=== PATIENT | male | born 1935 | race Caucasian/White ===

== ENCOUNTER 2017-06-08 18:44 | Inpatient (IN) | payer MEDICARE ==
[~2017-06-08] VITALS: Ht 175.3 cm; Wt 109.6 kg
[2017-06-08] MEDS ORDERED: FUROSEMIDE20 MG PO (20:06)
[2017-06-08] MEDS ORDERED: CATAPRES0.2 MG PO (20:06)
[2017-06-08] MEDS ORDERED: FLOMAX0.4 MG PO (20:07)
[2017-06-08] MEDS ORDERED: NORVASC5 MG PO (20:07)
[2017-06-08] MEDS ORDERED: PLAVIX75 MG PO (20:07)
[2017-06-08] MEDS ORDERED: LIPITOR80 MG PO (20:08)
[2017-06-08] MEDS ORDERED: [UNRECOGNIZED DRUG - OTHER] PO (20:10)
[2017-06-08 20:49] VITALS: BP 143/59
[2017-06-09 01:26] VITALS: BP 127/54
[2017-06-09 02:29] VITALS: BMI 35.4
[2017-06-09 04:00] VITALS: BP 175/59
[2017-06-09 04:47] LABS: HEMATOCRIT 36.4 % (42.0-54.0); HEMOGLOBIN 12.1 g/dL (13.5-17.5); MCH 29.2 pg (26.0-34.0); MCHC 33.2 g/dL (31.0-37.0); MCV 87.7 fL (80.0-100.0); MEAN PLATELET VOLUME 10.7 fL (7.4-10.4); PLATELET COUNT 194 10x3/uL (130-400); RBC 4.15 10x6/uL (4.20-6.10); RDW 15.1 % (11.5-14.5); WBC 24.5 10x3/uL (4.8-10.8)
[2017-06-09 05:18] LABS: ALBUMIN 3.1 g/dL (3.4-5.0); ANION GAP 14.5 mmol/L (8-16); BILIRUBIN - TOTAL 0.8 mg/dL (0.2-1.3); CALCIUM 9.9 mg/dL (8.5-10.1); CARBON DIOXIDE 23.9 mmol/L (21.0-32.0); CREATININE - SERUM 1.8 mg/dL (0.6-1.3); POTASSIUM - SERUM 4.4 mmol/L (3.5-5.1); PROTEIN - SERUM 6.9 g/dL (6.4-8.2)
[2017-06-09 05:43] LABS: EOSINOPHILS 1 % (0-7); LYMPHOCYTES 4 % (15-50); MONOCYTES 6 % (2-11); NEUTROPHILS 86 % (40-80); PLATELET ESTIMATE NORMAL
[2017-06-09 08:43] LABS: APPEARANCE CLEAR (CLEAR); BACTERIA FEW /hpf (NONE SEEN); BILIRUBIN NEGATIVE (NEGATIVE); COLOR DK YELLOW (YELLOW); EPITHELIAL CELLS OCC /hpf (0-5); GLUCOSE NEGATIVE (NEGATIVE); KETONE NEGATIVE (NEGATIVE); MUCUS <1+ /lpf (NONE SEEN); NITRITE NEGATIVE (NEGATIVE); PROTEIN TRACE mg/dL (NEGATIVE); RED CELLS - URINE OCC /hpf (0-5); SPECIFIC GRAVITY 1.015 (1.005-1.020); UROBILINOGEN NORMAL (NORMAL)
[2017-06-09 09:01] VITALS: BP 180/75
[2017-06-09 12:27] VITALS: BP 174/75
[2017-06-09 13:26] VITALS: Ht 175.3 cm; Wt 109.6 kg
[2017-06-09 16:27] VITALS: BP 148/61
[2017-06-09 22:06] VITALS: BP 167/55
[2017-06-10 05:03] VITALS: BP 147/70
[2017-06-10 06:27] LABS: BASOPHILS 0.1 % (0-2); EOSINOPHILS 0.7 % (0-7); HEMATOCRIT 34.9 % (42.0-54.0); HEMOGLOBIN 11.2 g/dL (13.5-17.5); IMMATURE GRANULOCYTES 0.6 % (0-5); LYMPHOCYTES 11.6 % (15-50); MCH 28.9 pg (26.0-34.0); MCHC 32.1 g/dL (31.0-37.0); MEAN PLATELET VOLUME 10.8 fL (7.4-10.4); MONOCYTES 9.7 % (2-11); NEUTROPHILS 77.3 % (40-80); PLATELET COUNT 192 10x3/uL (130-400); RBC 3.88 10x6/uL (4.20-6.10); RDW 15.4 % (11.5-14.5)
[2017-06-10 06:31] LABS: MCV 89.9 fL (80.0-100.0); WBC 15.2 10x3/uL (4.8-10.8)
[2017-06-10 06:42] LABS: ANION GAP 13.1 mmol/L (8-16); CALCIUM 9.2 mg/dL (8.5-10.1); CARBON DIOXIDE 25.6 mmol/L (21.0-32.0); CREATININE - SERUM 1.8 mg/dL (0.6-1.3); POTASSIUM - SERUM 4.7 mmol/L (3.5-5.1)
[2017-06-10 08:02] VITALS: BP 40/57
[2017-06-10 12:00] VITALS: BP 131/71
[2017-06-10 16:35] VITALS: BP 88/48
[2017-06-10 20:30] VITALS: BP 171/49
[2017-06-11 00:52] VITALS: BP 174/54
[2017-06-11 03:58] VITALS: BP 153/66
[2017-06-11 04:37] LABS: BASOPHILS 0.2 % (0-2); EOSINOPHILS 1.2 % (0-7); HEMATOCRIT 34.6 % (42.0-54.0); HEMOGLOBIN 11.2 g/dL (13.5-17.5); LYMPHOCYTES 12.5 % (15-50); MCH 29.1 pg (26.0-34.0); MCHC 32.4 g/dL (31.0-37.0); MCV 89.9 fL (80.0-100.0); MEAN PLATELET VOLUME 10.6 fL (7.4-10.4); MONOCYTES 11.3 % (2-11); NEUTROPHILS 73.8 % (40-80); PLATELET COUNT 194 10x3/uL (130-400); RBC 3.85 10x6/uL (4.20-6.10); RDW 15.3 % (11.5-14.5)
[2017-06-11 04:40] LABS: WBC 11.2 10x3/uL (4.8-10.8)
[2017-06-11 04:49] LABS: ANION GAP 13.5 mmol/L (8-16); CALCIUM 9.2 mg/dL (8.5-10.1); CARBON DIOXIDE 24.8 mmol/L (21.0-32.0); CREATININE - SERUM 1.6 mg/dL (0.6-1.3); POTASSIUM - SERUM 4.3 mmol/L (3.5-5.1)
[2017-06-11 08:29] VITALS: BP 153/62
[2017-06-11 12:51] VITALS: BP 137/59
[2017-06-11 15:51] VITALS: BP 140/70
[2017-06-11 20:00] VITALS: BP 145/49
[2017-06-12] VITALS: BP 121/55
[2017-06-12 04:00] VITALS: BP 151/61
[2017-06-12 04:50] LABS: BASOPHILS 0.2 % (0-2); EOSINOPHILS 2.8 % (0-7); HEMATOCRIT 33.4 % (42.0-54.0); HEMOGLOBIN 10.9 g/dL (13.5-17.5); IMMATURE GRANULOCYTES 2.3 % (0-5); LYMPHOCYTES 17.5 % (15-50); MCH 29.1 pg (26.0-34.0); MCHC 32.6 g/dL (31.0-37.0); MCV 89.1 fL (80.0-100.0); MEAN PLATELET VOLUME 10.7 fL (7.4-10.4); MONOCYTES 9.6 % (2-11); NEUTROPHILS 67.6 % (40-80); PLATELET COUNT 197 10x3/uL (130-400); RBC 3.75 10x6/uL (4.20-6.10); RDW 15.2 % (11.5-14.5); WBC 8.7 10x3/uL (4.8-10.8)
[2017-06-12 05:17] LABS: ANION GAP 16.1 mmol/L (8-16); CALCIUM 9.5 mg/dL (8.5-10.1); CARBON DIOXIDE 22.1 mmol/L (21.0-32.0); CREATININE - SERUM 1.7 mg/dL (0.6-1.3); POTASSIUM - SERUM 4.2 mmol/L (3.5-5.1)
[2017-06-12 08:09] VITALS: BP 154/54
[2017-06-12 12:07] VITALS: BP 152/62
[2017-06-12 16:01] VITALS: BP 138/51
[2017-06-12 19:49] VITALS: BP 138/52
[2017-06-13] VITALS: BP 179/71
[2017-06-13 04:03] VITALS: BP 137/50
[2017-06-13 05:59] LABS: BASOPHILS 0.3 % (0-2); EOSINOPHILS 3.2 % (0-7); HEMATOCRIT 33.9 % (42.0-54.0); IMMATURE GRANULOCYTES 4.3 % (0-5); LYMPHOCYTES 18.7 % (15-50); MCH 28.6 pg (26.0-34.0); MCHC 32.4 g/dL (31.0-37.0); MCV 88.1 fL (80.0-100.0); MEAN PLATELET VOLUME 11.1 fL (7.4-10.4); MONOCYTES 8.4 % (2-11); NEUTROPHILS 65.1 % (40-80); PLATELET COUNT 228 10x3/uL (130-400); RBC 3.85 10x6/uL (4.20-6.10); WBC 8.9 10x3/uL (4.8-10.8)
[2017-06-13 06:09] LABS: ANION GAP 12.4 mmol/L (8-16); CALCIUM 9.3 mg/dL (8.5-10.1); CARBON DIOXIDE 24.8 mmol/L (21.0-32.0); CREATININE - SERUM 1.5 mg/dL (0.6-1.3); POTASSIUM - SERUM 4.2 mmol/L (3.5-5.1)
[2017-06-13 07:32] VITALS: BP 153/60
[2017-06-13 11:39] VITALS: BP 124/57
[2017-06-13] MEDS ORDERED: LEVAQUIN500 MG PO (14:21)
== END 2017-06-13 16:24 | disposition home health service (06) | DRG 871 ==
LOC: D.MS 18:44
PROVIDERS: Internal Medicine Nephrology
DX: A41.9 Sepsis, unspecified organism (principal); J18.9 Pneumonia, unspecified organism; J96.01 Acute respiratory failure with hypoxia; N17.9 Acute kidney failure, unspecified; N18.9 Chronic kidney disease, unspecified; D64.9 Anemia, unspecified

== ENCOUNTER → 2018-06-30 08:50 | Outpatient (CLI) | payer MEDICARE ==
[2017-06-09 13:26] VITALS: BMI 35.3
[~2018-06-30 08:50] MED LIST: CATAPRES0.2 MG PO; FLOMAX0.4 MG PO; FUROSEMIDE20 MG PO; LEVAQUIN500 MG PO; LIPITOR80 MG PO; NORVASC5 MG PO; PLAVIX75 MG PO; [UNRECOGNIZED DRUG - OTHER] PO
[2018-06-30 09:56] LABS: ALBUMIN 2.9 g/dL (3.4-5.0); BILIRUBIN - DIRECT 0.11 mg/dL (0.00-0.30); BILIRUBIN - INDIRECT 0.31 mg/dL (0.00-1.00); BILIRUBIN - TOTAL 0.42 mg/dL (0.2-1.3); PROTEIN - SERUM 6.7 g/dL (6.4-8.2); T4 THYROXIN - FREE 1.13 ng/dL (0.76-1.46); T4 THYROXINE 7.5 ug/dL (4.7-13.3); THYROID STIMULATING HORMONE 0.5 uIU/mL (0.36-3.74)
== END | disposition home or self-care (01) ==
LOC: D.LABREF 08:50
PROVIDERS: ATTEND Internal Medicine Gastroenterology
DX: K44.9 Diaphragmatic hernia without obstruction or gangrene (principal)

== ENCOUNTER → 2018-07-07 08:09 | Outpatient (CLI) | payer MEDICARE ==
[2017-06-09 13:26] VITALS: BMI 35.3
== END | disposition home or self-care (01) ==
LOC: D.CT 08:00
PROVIDERS: ATTEND Nurse Practitioner
DX: R11.0 Nausea (principal); R63.4 Abnormal weight loss